=== PATIENT | female | born 1955 | race Caucasian/White ===

== ENCOUNTER 2020-06-11 11:23 | Emergency (ER) | payer MEDICARE ==
[~2020-06-11] VITALS: Ht 160 cm; Wt 63.6 kg
[2020-06-11] MEDS ORDERED: LORA-1000 PO (11:37)
[2020-06-11] MEDS ORDERED: CHEMOTHERAPY PO (11:37)
[2020-06-11] MEDS ORDERED: TRAZ-257 PO (11:37)
[2020-06-11] MEDS ORDERED: PRAV10TA39 PO (11:37)
[2020-06-11] MEDS ORDERED: MELO-107 PO (11:37)
[2020-06-11] MEDS ORDERED: LOVA20TA73 PO (11:37)
[2020-06-11] MEDS ORDERED: BUPR-121 PO (11:37)
[2020-06-11 12:12] LABS: HEMATOCRIT 31.2 % (36-46); HEMOGLOBIN 10.4 g/dL (12.0-16.0); MEAN CORPUSCULAR HEMOGLOBIN 30.3 pg (26.0-34.0); MEAN CORPUSCULAR HGB CONC 33.2 G/dL (31.0-37.0); MEAN CORPUSCULAR VOLUME 91 fL (80-100); PLATELET COUNT (AUTO) 285 K/uL (150-450); RED BLOOD CELL COUNT(AUTO) 3.42 MIL/uL (4.00-5.20); RED CELL DISTRIBUTION WIDTH 17.5 % (11.5-14.5)
[2020-06-11 12:28] LABS: CALCIUM, TOTAL 9.4 mg/dL (8.8-10.5); CREATININE 0.97 mg/dL (0.60-1.30); POTASSIUM 4.5 mmol/L (3.5-5.1)
[2020-06-11 12:36] LABS: ALBUMIN 3.3 g/dL (3.4-5.0); BILIRUBIN,TOTAL 0.3 mg/dL (0.1-1.0)
[2020-06-11 13:00] VITALS: BP 108/71
[2020-06-11 13:56] LABS: EOSINOPHILS % (MANUAL) 1 % (1-6); LYMPHOCYTES % (MANUAL) 19 % (22-44); MONOCYTES % (MANUAL) 13 % (2-9); SEGMENTED NEUTROPHILS % 67 % (40-70)
[2020-06-11 13:58] LABS: BAND NEUTROPHILS % (MANUAL) 0 % (0-5)
== END 2020-06-11 15:55 | disposition home or self-care (01) ==
LOC: EMS 11:26
DX: C34.91 Malignant neoplasm of unspecified part of right bronchus or lung (principal); R10.11 Right upper quadrant pain; F41.9 Anxiety disorder, unspecified; J44.9 Chronic obstructive pulmonary disease, unspecified; F32.9 Major depressive disorder, single episode, unspecified; E78.00 Pure hypercholesterolemia, unspecified; F17.210 Nicotine dependence, cigarettes, uncomplicated
CPT/HCPCS: 76700; 93005; 99285; 71045-TC